=== PATIENT | female | born 1965 | race Caucasian/White ===

== ENCOUNTER 2024-01-26 13:38 | Inpatient (IN) | payer MEDICAID ==
[~2024-01-26] VITALS: Ht 160 cm; Wt 69.4 kg
[2024-01-26 13:49] VITALS: PULSE 74; RESP 20; TEMP 100.4; O2SAT 98
[2024-01-26 15:13] LABS: INR 1.1 (0.8-1.2)
[2024-01-26 15:24] LABS: ALBUMIN 3.4 g/dL (3.4-4.8); ANION GAP 8 (5-15); ASPARTATE AMINOTRANSFERASE 10 U/L (10-37); CALCIUM 9.7 mg/dL (8.4-11.0); CARBON DIOXIDE 33 mmol/L (23-29); CHLORIDE 95 mmol/L (98-107); CREATININE 5.06 mg/dL (0.55-1.30); GFR AFRICAN AMERICAN 11 mL/min (>90); GLUCOSE 117 mg/dL (74-106); SODIUM SERUM 136 mmol/L (136-145); TOTAL BILIRUBIN 0.6 mg/dL (0.0-1.0); TOTAL PROTEIN, SERUM 9.1 g/dL (6.4-8.3); UREA NITROGEN, BLOOD 18 mg/dL (8-21)
[2024-01-26 15:26] LABS: GFR NON AFRICAN-AMERICAN 9 mL/min (>90)
[2024-01-26 15:39] LABS: BILIRUBIN,DIRECT 0.2 mg/dL (0.0-0.3)
[2024-01-26 15:52] LABS: EOSINOPHILS % (AUTO) 0.8 % (0.0-4.0); HEMATOCRIT 32.7 % (36-48); HEMOGLOBIN 11.2 g/dL (12.0-16.0); LYMPHOCYTES # (AUTO) 0.6 K/uL (1.0-5.5); LYMPHOCYTES % (AUTO) 12.8 % (20.5-51.5); MEAN CORPUSCULAR HEMOGLOBIN 32 pg (27-31); MEAN CORPUSCULAR HGB CONC 34 % (32-36); MEAN CORPUSCULAR VOLUME 93 fL (79.0-98.0); MONOCYTES # (AUTO) 0.5 K/uL (0.0-1.0); NEUTROPHILS # (AUTO) 3.4 K/uL (1.8-7.7); NEUTROPHILS % (AUTO) 74.4 % (40.0-70.0); PLATELET COUNT (AUTO) 163 K/uL (130-430); RED CELL DISTRIBUTION WIDTH 15.1 % (9.0-15.0); WHITE BLOOD COUNT (AUTO) 4.6 K/uL (4.8-10.8)
[2024-01-26] MEDS ORDERED: PIPERACILLIN/TAZOBACTAM 3.375 GM/VIAL (ZOSYN) IV ONE (15:53)
[2024-01-26 15:56] LABS: ALANINE AMINOTRANSFERASE 5 U/L (12-78)
[2024-01-26] MEDS: ASPIRIN 81 MG TABLET(ECOTRIN) PO ONE (16:05)
[2024-01-26] MEDS: guaiFENesin/DEXTROMETHORPHAN 10 ML UDC PO ONE (16:05)
[2024-01-26] MEDS: ACETAMINOPHEN 325 MG TABLET PO ONE (16:06)
[2024-01-26] MEDS: ONDANSETRON HCL 4 MG/2 ML VIAL IVP ONE (16:07)
[2024-01-26] MEDS: PIPERACILLIN/TAZO 3.375 GM in NS 50 ML IV ONE (16:08)
[2024-01-26] MEDS: NITROGLYCERIN 1 INCH (GM) OINT. TP ONE (16:08)
[2024-01-26] MEDS ORDERED: VANCOMYCIN HCL 1000 MG/VIAL IV ONE (17:06)
[2024-01-26] MEDS: VANCOMYCIN HCL 1,000 MG in NS 250 ML IV ONE (17:07)
[2024-01-26 18:32] LABS: INFLUENZA TYPE A NEGATIVE (NEGATIVE); INFLUENZA TYPE B NEGATIVE (NEGATIVE)
[2024-01-26] MEDS ORDERED: ERGO1250 PO (18:59)
[2024-01-26] MEDS ORDERED: NIFE90TA24 PO (18:59)
[2024-01-26] MEDS ORDERED: LEVO100T9 PO (18:59)
[2024-01-26] MEDS ORDERED: METO50TA16 PO (18:59)
[2024-01-26] MEDS ORDERED: CLOP75TA32 PO (18:59)
[2024-01-26] MEDS ORDERED: SEVE800T27 PO (18:59)
[2024-01-26] MEDS ORDERED: ASPI-1155 PO (18:59)
[2024-01-27] VITALS (10 sets, daily range): BP systolic 145–173; PULSE 62–74; RESP 16–18; TEMP 97.4–99.1; O2SAT 85–97
[2024-01-27] MEDS: ONDANSETRON HCL 4 MG/2 ML VIAL IVP ONE (02:08)
[2024-01-27] MEDS: IPRATROPIUM BROM 0.5 MG/2.5 ML VIAL.NEB (ATROVENT) INH SCH (11:00)
[2024-01-27] MEDS ORDERED: NALOXONE HCL 0.4 MG/ML AMP (NARCAN) IVP PRN ×2 (11:00)
[2024-01-27] MEDS ORDERED: HYDROcodone/ACETAMIN 10-325 MG TAB PO PRN (11:00)
[2024-01-27] MEDS: ALBUTEROL SULFATE 0.083% 2.5 MG/3 ML VIAL.NEB INH SCH (11:00)
[2024-01-27] MEDS ORDERED: ONDANSETRON HCL 4 MG/2 ML VIAL IVP PRN (11:00)
[2024-01-27] MEDS ORDERED: HYDROcodone/ACETAMIN 5-325 MG TAB (NORCO/ VICODIN) PO PRN (11:00)
[2024-01-27] MEDS ORDERED: ACETAMINOPHEN 325 MG TABLET PO PRN (11:00)
[2024-01-27] MEDS ORDERED: PIPERACILLIN/TAZO 3.375/DEX-IS 50 ML IV SCH (12:00)
[2024-01-27] MEDS: NORMAL SALINE 5 ML DISP.SYRIN IVF SCH (14:00)
[2024-01-27] MEDS: SEVELAMER CARBONATE 800 MG TABLET PO SCH (17:15)
[2024-01-27] MEDS: PIPERACILLIN/TAZOBACTAM 2.25 GM/ D5W 50 ML IV SCH (17:15)
[2024-01-27] MEDS: NIFEDIPINE 90 MG TABLET.SA (PROCARDIA XL 90 MG) PO SCH (21:16)
[2024-01-27] MEDS: METOPROLOL TARTRATE 50 MG TABLET PO SCH (21:17)
[2024-01-27] MEDS: guaiFENesin/DEXTROMETHORPHAN 10 ML UDC PO PRN (22:16)
[2024-01-28] VITALS (13 sets, daily range): BP systolic 108–150; PULSE 60–78; RESP 16–20; TEMP 97–98.4; O2SAT 18–100
[2024-01-28] MEDS: LEVOTHYROXINE SODIUM 0.1 MG TABLET PO SCH (06:27)
[2024-01-28 07:31] LABS: BASOPHILS % (AUTO) 1.1 % (0.0-2.0); EOSINOPHILS % (AUTO) 1.1 % (0.0-4.0); HEMATOCRIT 31.1 % (36-48); HEMOGLOBIN 10.2 g/dL (12.0-16.0); LYMPHOCYTES # (AUTO) 1.3 K/uL (1.0-5.5); LYMPHOCYTES % (AUTO) 33.1 % (20.5-51.5); MEAN CORPUSCULAR HEMOGLOBIN 31 pg (27-31); MEAN CORPUSCULAR HGB CONC 33 % (32-36); MEAN CORPUSCULAR VOLUME 95 fL (79.0-98.0); MONOCYTES # (AUTO) 0.7 K/uL (0.0-1.0); MONOCYTES % (AUTO) 18.1 % (1.7-9.3); NEUTROPHILS # (AUTO) 1.8 K/uL (1.8-7.7); NEUTROPHILS % (AUTO) 46.6 % (40.0-70.0); PLATELET COUNT (AUTO) 138 K/uL (130-430); RED BLOOD CELL COUNT(AUTO) 3.28 MIL/uL (4.2-6.2); RED CELL DISTRIBUTION WIDTH 15.1 % (9.0-15.0); WHITE BLOOD COUNT (AUTO) 3.9 K/uL (4.8-10.8)
[2024-01-28 08:02] LABS: ALBUMIN 2.9 g/dL (3.4-4.8); CALCIUM 8.9 mg/dL (8.4-11.0); PHOSPHORUS 7.7 mg/dL (2.7-4.5); POTASSIUM 5.4 mmol/L (3.5-5.1); TOTAL BILIRUBIN 0.5 mg/dL (0.0-1.0); TOTAL PROTEIN, SERUM 7.4 g/dL (6.4-8.3)
[2024-01-28] MEDS: AZITHROMYCIN 250 MG TABLET PO SCH (08:54)
[2024-01-28] MEDS: CLOPIDOGREL BISULFATE 75 MG TABLET PO SCH (08:54)
[2024-01-28] MEDS: ASPIRIN 81 MG TAB.CHEW PO SCH (08:54)
[2024-01-28] MEDS: FUROSEMIDE 20 MG/2 ML VIAL IVP SCH (08:55)
[2024-01-28 09:15] LABS: CREATININE 8.02 mg/dL (0.55-1.30)
[2024-01-28] MEDS: CEFEPIME 2 GM in D5W 100 ML IV SCH (12:16)
[2024-01-28] MEDS: INSULIN REGULAR, HUMAN 100 UNITS/ML, 3 ML VIAL (humuLIN R) SUBCUT PRN (12:16)
[2024-01-29] VITALS (11 sets, daily range): BP systolic 113–144; PULSE 69–78; RESP 15–20; TEMP 97–98.4; O2SAT 92–98
[2024-01-29] MEDS: SODIUM ZIRCONIUM CYCLOSILICATE 10 GM POWD.PACK PO ONE (05:47)
[2024-01-29 07:08] LABS: BASOPHILS % (AUTO) 0.8 % (0.0-2.0); EOSINOPHILS # (AUTO) 0.1 K/uL (0.0-0.4); EOSINOPHILS % (AUTO) 1.7 % (0.0-4.0); HEMATOCRIT 30.2 % (36-48); HEMOGLOBIN 9.8 g/dL (12.0-16.0); LYMPHOCYTES # (AUTO) 0.9 K/uL (1.0-5.5); LYMPHOCYTES % (AUTO) 19.9 % (20.5-51.5); MEAN CORPUSCULAR HEMOGLOBIN 31 pg (27-31); MEAN CORPUSCULAR HGB CONC 33 % (32-36); MEAN CORPUSCULAR VOLUME 94 fL (79.0-98.0); MONOCYTES # (AUTO) 0.5 K/uL (0.0-1.0); MONOCYTES % (AUTO) 11.5 % (1.7-9.3); NEUTROPHILS # (AUTO) 2.8 K/uL (1.8-7.7); NEUTROPHILS % (AUTO) 66.1 % (40.0-70.0); PLATELET COUNT (AUTO) 140 K/uL (130-430); RED CELL DISTRIBUTION WIDTH 14.6 % (9.0-15.0); WHITE BLOOD COUNT (AUTO) 4.3 K/uL (4.8-10.8)
[2024-01-29 07:48] LABS: ERYTHROCYTE SEDIMENTATION RATE 85 MM/HR (0-20)
[2024-01-29 07:53] LABS: CALCIUM 8.9 mg/dL (8.4-11.0); PHOSPHORUS 8.2 mg/dL (2.7-4.5)
[2024-01-29 08:51] LABS: CREATININE 9.44 mg/dL (0.55-1.30)
[2024-01-29] MEDS: SEVELAMER CARBONATE 800 MG TABLET PO SCH (17:42)
[2024-01-29] MEDS: FERROUS SULFATE 325 MG TABLET.DR PO SCH (20:54)
[2024-01-29] MEDS: ACETAMINOPHEN 325 MG TABLET PO PRN (23:04)
[2024-01-30] VITALS (15 sets, daily range): BP systolic 122–156; PULSE 66–76; RESP 14–19; TEMP 97.1–98.8; O2SAT 93–100
[2024-01-30] MEDS: LORazepam 2 MG/ML VIAL IVP PRN (04:26)
[2024-01-30] MEDS: NEPHROVITE, (FOLIC ACID/VITAMIN B COMP W-C 1 TAB) PO SCH (08:32)
[2024-01-30 17:48] LABS: EOSINOPHILS # (AUTO) 0.1 K/uL (0.0-0.4); EOSINOPHILS % (AUTO) 1.4 % (0.0-4.0); HEMATOCRIT 31.4 % (36-48); HEMOGLOBIN 10.6 g/dL (12.0-16.0); LYMPHOCYTES # (AUTO) 1.3 K/uL (1.0-5.5); LYMPHOCYTES % (AUTO) 25.7 % (20.5-51.5); MEAN CORPUSCULAR HEMOGLOBIN 32 pg (27-31); MEAN CORPUSCULAR HGB CONC 34 % (32-36); MEAN CORPUSCULAR VOLUME 95 fL (79.0-98.0); MONOCYTES # (AUTO) 0.5 K/uL (0.0-1.0); MONOCYTES % (AUTO) 9.9 % (1.7-9.3); NEUTROPHILS # (AUTO) 3.1 K/uL (1.8-7.7); PLATELET COUNT (AUTO) 161 K/uL (130-430); RED BLOOD CELL COUNT(AUTO) 3.32 MIL/uL (4.2-6.2); RED CELL DISTRIBUTION WIDTH 15.1 % (9.0-15.0)
[2024-01-30 17:55] LABS: ALBUMIN 2.9 g/dL (3.4-4.8); CALCIUM 9.9 mg/dL (8.4-11.0); CREATININE 6.5 mg/dL (0.55-1.30); PHOSPHORUS 6.5 mg/dL (2.7-4.5); POTASSIUM 4.6 mmol/L (3.5-5.1); TOTAL BILIRUBIN 0.6 mg/dL (0.0-1.0); TOTAL PROTEIN, SERUM 8.2 g/dL (6.4-8.3)
[2024-01-31] VITALS (9 sets, daily range): BP systolic 131–151; PULSE 64–77; RESP 16–18; TEMP 97.1–98.2; O2SAT 93–100
[2024-01-31 07:33] LABS: ERYTHROCYTE SEDIMENTATION RATE 91 MM/HR (0-20)
[2024-01-31 08:22] LABS: ERYTHROCYTE SEDIMENTATION RATE 69 MM/HR (0-20)
[2024-01-31 08:24] LABS: EOSINOPHILS # (AUTO) 0.1 K/uL (0.0-0.4); EOSINOPHILS % (AUTO) 2.5 % (0.0-4.0); HEMOGLOBIN 10.5 g/dL (12.0-16.0); LYMPHOCYTES # (AUTO) 1.3 K/uL (1.0-5.5); LYMPHOCYTES % (AUTO) 27.2 % (20.5-51.5); MEAN CORPUSCULAR HEMOGLOBIN 31 pg (27-31); MEAN CORPUSCULAR HGB CONC 33 % (32-36); MEAN CORPUSCULAR VOLUME 95 fL (79.0-98.0); MONOCYTES # (AUTO) 0.5 K/uL (0.0-1.0); MONOCYTES % (AUTO) 10.7 % (1.7-9.3); NEUTROPHILS # (AUTO) 2.9 K/uL (1.8-7.7); NEUTROPHILS % (AUTO) 58.6 % (40.0-70.0); PLATELET COUNT (AUTO) 155 K/uL (130-430); RED BLOOD CELL COUNT(AUTO) 3.38 MIL/uL (4.2-6.2); RED CELL DISTRIBUTION WIDTH 15.1 % (9.0-15.0); WHITE BLOOD COUNT (AUTO) 4.9 K/uL (4.8-10.8)
[2024-01-31 08:31] LABS: CALCIUM 9.2 mg/dL (8.4-11.0); CREATININE 7.48 mg/dL (0.55-1.30)
[2024-01-31] MEDS ORDERED: DOXY100C PO (11:36)
[2024-01-31] MEDS ORDERED: NEPH PO (11:36)
[2024-01-31] MEDS ORDERED: SEVE800T27 PO (11:36)
[2024-02-01] MEDS ORDERED: EPOETIN ALFA 3,000 UNITS/ML VIAL SUBCUT SCH (17:00)
== END 2024-01-31 15:50 | disposition home or self-care (01) | DRG 720 ==
LOC: SED 13:38 → STU 18:42 → SMU 01-30 08:40
PROVIDERS: ADMIT Preventive Medicine Preventive Medicine/Occupational Environmental Medicine; ATTEND Preventive Medicine Preventive Medicine/Occupational Environmental Medicine
PROC: 5A1D70Z Performance of Urinary Filtration, Intermittent, Less than 6 Hours Per Day (ICD-10-PCS; principal; 2024-01-29)
DX: A41.9 Sepsis, unspecified organism (principal); J96.00 Acute respiratory failure, unspecified whether with hypoxia or hypercapnia; I13.2 Hypertensive heart and chronic kidney disease with heart failure and with stage 5 chronic kidney disease, or end stage renal disease; N17.9 Acute kidney failure, unspecified; D63.1 Anemia in chronic kidney disease; E83.41 Hypermagnesemia; E83.39 Other disorders of phosphorus metabolism; N18.6 End stage renal disease; J18.9 Pneumonia, unspecified organism; E11.22 Type 2 diabetes mellitus with diabetic chronic kidney disease; I50.9 Heart failure, unspecified; J44.0 Chronic obstructive pulmonary disease with (acute) lower respiratory infection; E03.9 Hypothyroidism, unspecified; Z20.822 Contact with and (suspected) exposure to COVID-19; E87.5 Hyperkalemia; E87.6 Hypokalemia; E11.65 Type 2 diabetes mellitus with hyperglycemia; D72.819 Decreased white blood cell count, unspecified; Z99.2 Dependence on renal dialysis; Z79.01 Long term (current) use of anticoagulants; Z79.899 Other long term (current) drug therapy; Z88.8 Allergy status to other drugs, medicaments and biological substances
CPT/HCPCS: 36415; 71045; 76770; 80048; 80053; 80076; 82948; 83605; 83735; 83880; 84100; 84484; 85025; 85610; 85651; 85730; 87040; 90937; 93005; 93306; 94070; 94640; 94760; 97110-GP; 97112-GP; 97116-GP; 97530-GP; 99285; G0378; J0692; J1815; J1940; J2060; J2405; J2543; J3370; J7030; J7060; Q0144